=== PATIENT | male | born 1945 | race Caucasian/White ===

== ENCOUNTER 2019-08-07 10:31 | Emergency (ER) | payer OTHER, BC ==
[~2019-08-07] VITALS: Ht 177.8 cm; Wt 88.5 kg
[2019-08-07 12:01] VITALS: BP 128/75
== END 2019-08-07 12:02 | disposition home or self-care (01) ==
LOC: M.ERS 10:31
DX: S00.83XA Contusion of other part of head, initial encounter (principal); I10 Essential (primary) hypertension; E11.9 Type 2 diabetes mellitus without complications; Z88.0 Allergy status to penicillin; W01.0XXA Fall on same level from slipping, tripping and stumbling without subsequent striking against object, initial encounter; Y93.89 Activity, other specified; Y92.89 Other specified places as the place of occurrence of the external cause; Y99.0 Civilian activity done for income or pay